=== PATIENT | male | born 1995 ===

== ENCOUNTER 2020-03-20 13:34 | Outpatient (REF) | payer BC, SELFPAY ==
[2020-03-22 14:52] LABS: SARS-CoV-2 RNA Not Detected (NotDetected); SARS-CoV-2 RNA Source Nasal/Nares
== END 2020-03-20 13:54 ==
LOC: NCHCN 13:34
PROVIDERS: PCP Family Medicine; Visit Provider Family Medicine
DX: R09.81 Nasal congestion (principal); R05 Cough; R50.9 Fever, unspecified
CPT/HCPCS: U0003